=== PATIENT | female | born 1980 | race African-American/Black ===

== ENCOUNTER 2017-01-16 16:05 | Observation (INO) | payer MEDICAID, OTHER ==
[~2017-01-16] VITALS: Ht 162.6 cm; Wt 91.6 kg
[2017-01-16] MEDS ORDERED: PREN-88 PO (16:40)
[2017-01-16] MEDS ORDERED: FOLI-43 PO (16:41)
[2017-01-16] MEDS ORDERED: LACTATED RINGERS 1,000 ML IV SCH (16:45)
[2017-01-16] MEDS ORDERED: MVI, ADULT NO.1 10 ML in LACTATED RINGERS 1,000 ML IV SCH ×2 (18:00)
== END 2017-01-16 18:55 | disposition home or self-care (01) ==
LOC: L&D 16:05
PROVIDERS: ADMIT Specialist; ATTEND Specialist
DX: O26.893 Other specified pregnancy related conditions, third trimester (principal); R42 Dizziness and giddiness; R10.9 Unspecified abdominal pain; O09.523 Supervision of elderly multigravida, third trimester; Z3A.28 28 weeks gestation of pregnancy
CPT/HCPCS: 96360; 99281; G0378; J3490; J7120

== ENCOUNTER 2018-12-19 20:06 | Emergency (ER) | payer MEDICAID, OTHER ==
[~2018-12-19] VITALS: Ht 162.6 cm; Wt 94.0 kg
[~2018-12-19 20:06] MED LIST: FOLI-43 PO; PREN-88 PO
[2018-12-19] MEDS ORDERED: DIPHENHYDRAMINE 25MG CAPSULE PO ONE (21:00)
[2018-12-19] MEDS ORDERED: FAMOTIDINE 20MG TABLET PO ONE (21:00)
[2018-12-19 22:05] VITALS: BP 114/58
== END 2018-12-19 22:03 | disposition home or self-care (01) ==
LOC: ER 20:06
DX: L29.8 Other pruritus (principal); T49.4X5A Adverse effect of keratolytics, keratoplastics, and other hair treatment drugs and preparations, initial encounter; Y92.89 Other specified places as the place of occurrence of the external cause
CPT/HCPCS: 99283; Q0163

== ENCOUNTER 2021-06-03 17:39 | Emergency (ER) | payer MEDICAID, OTHER ==
[~2021-06-03] VITALS: Ht 160 cm; Wt 85.0 kg
[2021-06-03 17:42] VITALS: BP 130/72
[2021-06-03] MEDS ORDERED: P50 MT (22:11)
[2021-06-03] MEDS ORDERED: PREDNISONE 20MG TABLET PO SCH ×2 (22:15)
[2021-06-03] MEDS ORDERED: ACETAMINOPHEN 325MG TABLET PO ONE (22:15)
== END 2021-06-03 22:24 | disposition home or self-care (01) ==
LOC: ER 17:39
DX: T65.6X1A Toxic effect of paints and dyes, not elsewhere classified, accidental (unintentional), initial encounter (principal); L23.4 Allergic contact dermatitis due to dyes; Y92.012 Bathroom of single-family (private) house as the place of occurrence of the external cause; R03.0 Elevated blood-pressure reading, without diagnosis of hypertension
CPT/HCPCS: 99283; J7512